=== PATIENT | male | born 1995 | race Caucasian/White ===

== ENCOUNTER 2017-03-06 07:18 | Emergency (ER) | payer BC, OTHER ==
[2017-03-06 07:25] VITALS: BP 118/83; PULSE 68; TEMP 98.5; BMI 28.3
[2017-03-06] MEDS ORDERED: IBUPROFEN 400 MG TABLET (FP) PO ONE (07:32)
[2017-03-06] MEDS ORDERED: IBUPROFEN 600 MG TABLET (FP) PO ONE (07:34)
--- NOTE | 2017-03-06 07:36 | PDOC ---
History of Present Illness - General Chief Complaint: Pain Stated Complaint: RIGHT SHOULDER PAIN Time Seen by Provider: 03/06/17 07:20 History Source: Patient Exam Limitations: No Limitations - History of Present Illness Initial Comments: 03/06/17 07:33 21y M no pmhx presents with R shoulder pain. The pt was working out yesterday, doing crossovers when he developed mild R shoulder discomfort. Overnight, his pain became worse and woke him from sleep. He took tylenol without any signfiicant improvement. The pt endroses that any movement of his arm induces pain and letting it hang when sitting down minimizes the pain. There is no numbness/tingling/weakness, trauma. Past History - Past Medical History Allergies/Adverse Reactions: Allergies Allergy/AdvReac Type Severity Reaction Status Date / Time No Known Allergies Allergy Verified 03/06/17 07:25 Other medical history: DENIES - Immunization History Td Vaccination: No Immunization Up to Date: Yes - Psycho/Social/Smoking Cessation Hx Anxiety: No Suicidal Ideation: No Smoking Status: No Smoking History: Former smoker Years of Tobacco Use: 0 Have you smoked in the past 12 months: No Number of Cigarettes Smoked Daily: 20 Information on smoking cessation initiated: No 'Breaking Loose' booklet given: 02/07/16 Hx Alcohol Use: Yes (SOCIAL) Drug/Substance Use Hx: No Substance Use Type: Alcohol Review of Systems - Review of Systems Able to Perform ROS?: Yes Comments:: 03/06/17 07:36 Musculskelatal - + r shoulder pain no reported back pain, joint swelling skin - no reported bruising, erythema, rash neurological: no reported numbness, focal weakness, tingling, *Physical Exam - Vital Signs Last Vital Signs Temp Pulse Resp BP Pulse Ox 98.5 F 68 16 118/83 100 03/06/17 07:19 03/06/17 07:19 03/06/17 07:19 03/06/17 07:19 03/06/17 07:19 - Physical Exam Comments: 03/06/17 07:37 GENERAL: The patient is awake, alert, and fully oriented, Nontoxic - in no acute distress. NECK: no focal tenderness Normal range of motion, supple EXTREMITIES: +focal tenderness on shoulder insertion of R pectoralis, Normal range of motion, NEUROLOGICAL: No facial assymetry, Normal speech, sensation intact distally, no appreciable weakness of RUE Medical Decision Making - Medical Decision Making 03/06/17 07:39 suspect muscle strain NSAIDS, heat if not improved within 10-14 days, ortho fu return precatuions were discussed I discussed the physical exam findings, ancillary test results and final diagnoses with the patient. I answered all of the patient's questions. The patient was satisfied with the care received and felt comfortable with the discharge plan and treatment plan. The patient will call their primary care physician within 24 hours to arrange follow-up and will return to the Emergency Department with any new, persistent or worsening symptoms. *DC/Admit/Observation/Transfer Diagnosis at time of Disposition: Pectoralis muscle strain Qualifiers: Encounter type: initial encounter Qualified Code(s): S29.011A - Strain of muscle and tendon of front wall of thorax, initial encounter - Discharge Dispostion Disposition: HOME Condition at time of disposition: Stable Admit: No - Referrals Referrals: Chapo Lozoya MD [Staff Physician] - - Patient Instructions Printed Discharge Instructions: Muscle Strain, DI for Muscle Strain Additional Instructions: Return to the emergency department immediately with ANY new, persistent or worsening symptoms. Take Motrin 600mg three times daily for 2-3 days. Use heat for comfort. Avoid any motions that worsen your pain. Avoid heavy lifting You MUST call and follow up with your doctor tomorrow for further evaluation of your symptoms. Results were discussed with you. Please make sure your doctor reviews the results of your emergency evaluation.
== END 2017-03-06 07:57 | disposition home or self-care (01) ==
LOC: FER 07:18
DX: S29.011A Strain of muscle and tendon of front wall of thorax, initial encounter (principal); X58.XXXA Exposure to other specified factors, initial encounter; Y93.89 Activity, other specified; Y92.9 Unspecified place or not applicable; Z87.891 Personal history of nicotine dependence
CPT/HCPCS: 99281-25

== ENCOUNTER 2017-09-10 01:36 | Emergency (ER) | payer BC, OTHER ==
[2017-09-10] MEDS ORDERED: KETOROLAC TROMETHAMINE 60 MG/2 ML VIAL ONE (01:49)
--- NOTE | 2017-09-10 01:51 | PDOC ---
History of Present Illness - General Chief Complaint: Pain, Acute Stated Complaint: PRODUCTIVE COUGH, CHEST PAIN X 2 WEEKS Time Seen by Provider: 09/10/17 01:45 History Source: Patient Exam Limitations: No Limitations - History of Present Illness Initial Comments: 09/10/17 01:48 This is a 22-year-old male who comes in complaining of chest pain when he coughs. Patient said that he has been coughing for 2 weeks and that was developed chest pain over the last several days. Patient said it only hurts with cough. Patient says he sometimes does get otherwise random sharp pain his chest that lasts a few seconds result. Patient is otherwise healthy. He takes no medication. He denies any cardiac risk factors of hypertension, high cholesterol, diabetes. Patient does not smoke, does not use cocaine or illegal drugs. Patient has a primary care doctor and has not followed up with his primary care doctor. He went to an urgent care center a few days ago and was given Tessalon Perles. PAST MEDICAL HISTORY: no significant history PAST SURGICAL HISTORY: no significant history FAMILY HISTORY: no pertinant history SOCIAL HISTORY: Pt lives with family and is employed. MEDICATIONS: reviewed ALLERGIES: As per nursing notes Review of Systems General: No fevers or chills, no weakness, no weight loss HEENT: No change in vision. No sore throat,. No ear pain CardioVascular: + Pleuritic chest pain no shortness of breath Respiratory: + cough, no wheezing. Gastrointestinal: no nausea, vomitting, diarrhea or constipation, No rectal bleeding Genitourinary: No dysuria, hematuria, or frequency Musculoskeletal: No joint or muscle pain or swelling Neurologic: No headache, vertigo, dizziness or loss of consciousness Psychiatric: nor depression Skin: No rashes or easy bruising Endocrine: no increased thirst or abnormal weight change Allergic: no skin or latex allergy All other systems reviewed and normal Exam: General: Well-nourished well-developed individual, no acute distress HEENT: Throat: Normal, tonsils normal, no erythema or exudate Neck: Supple, no meningeal signs, no lymphadenopathy Eyes::Pupils equal reactive and round, extraocular motion intact Chest: Nontender to palpation Cardiac: S1-S2 normal, regular rate and rhythm, no murmurs rubs or gallops Respiratory: Lungs clear to auscultation bilateral Abdomen: Soft, nondistended, normal bowel sounds, nontender to palpation diffusely Extremities: Warm, dry, no cyanosis, clubbing, or edema Skin: No rashes Neuro: Alert and oriented x3, CN II - XII intact, nonfocal exam with normal strength, normal sensation, normal reflexes, normal gait, Psych: Normal mood and affect Assessment and plan: This is a 22-year-old male with pleuritic type chest pain. Patient was given a dose of Toradol and told he could continue ibuprofen or nonsteroidal and anti-inflammatory . Patient does have a primary care doctor he will call in the morning. Past History - Past Medical History Allergies/Adverse Reactions: Allergies Allergy/AdvReac Type Severity Reaction Status Date / Time No Known Allergies Allergy Verified 09/10/17 01:37 Home Medications: Ambulatory Orders NK [No Known Home Medication] 09/10/17 COPD: No Other medical history: DENIES - Immunization History Td Vaccination: No Immunization Up to Date: Yes - Suicide/Smoking/Psychosocial Hx Smoking Status: No Smoking History: Former smoker Years of Tobacco Use: 0 Have you smoked in the past 12 months: Yes Number of Cigarettes Smoked Daily: 20 If you are a former smoker, when did you quit?: 10 MONTHS Information on smoking cessation initiated: No 'Breaking Loose' booklet given: 02/07/16 Hx Alcohol Use: Yes (WEEKENDS) Drug/Substance Use Hx: No Substance Use Type: Alcohol *Physical Exam - Vital Signs Last Vital Signs Temp Pulse Resp BP Pulse Ox 98.5 F 90 16 145/95 100 09/10/17 01:37 09/10/17 01:37 09/10/17 01:37 09/10/17 01:37 09/10/17 01:37 *DC/Admit/Observation/Transfer Diagnosis at time of Disposition: Pleuritic chest pain - Discharge Dispostion Disposition: HOME Condition at time of disposition: Stable Admit: No - Referrals Referrals: Dottie Root MD [Primary Care Provider] - - Patient Instructions Additional Instructions: For the pain take ibuprofen U can take 3 tablets as often as [address] times [address] Call Dr[address] Cha in the morning and get an appointment to follow-up with her tomorrow the next day. Return to the emergency department immediately with ANY new, persistent or worsening symptoms. Continue any medications as previously prescribed by your physician. You should follow up with your primary doctor as soon as possible regarding today's emergency department visit. . Please make sure your doctor reviews the results of your emergency evaluation. Thank you for coming to the Emergency Department today for your care. It was a pleasure to see you today. Please note that your evaluation is INCOMPLETE until you follow-up with your doctor. - Post Discharge Activity
[2017-09-10] MEDS ORDERED: KETOROLAC TROMETHAMINE 60 MG/2 ML VIAL IM ONE (01:52)
[2017-09-10 02:12] VITALS: BP 145/95; PULSE 90; TEMP 98.5; BMI 29.7
== END 2017-09-10 01:55 | disposition home or self-care (01) ==
LOC: FER 01:36
PROC: 3E0233Z Introduction of Anti-inflammatory into Muscle, Percutaneous Approach (ICD-10-PCS; principal; 2017-09-10)
DX: R07.89 Other chest pain (principal); Z87.891 Personal history of nicotine dependence
CPT/HCPCS: 99281-25

== ENCOUNTER 2021-06-06 21:33 | Emergency (ER) | payer BC, OTHER ==
[2021-06-06 21:58] VITALS: BP 148/100; PULSE 66; TEMP 98.3; BMI 29.0
== END 2021-06-06 22:18 | disposition home or self-care (01) ==
LOC: FER 21:33
DX: R07.89 Other chest pain (principal); R05 Cough
CPT/HCPCS: 93005; 99283-25